=== PATIENT | male | born 1950 | race Caucasian/White ===

== ENCOUNTER 2021-03-21 13:45 | Emergency (ER) | payer MEDICARE ==
[2021-03-21] MEDS ORDERED: Morphine 4 MG/ML VIAL ONE ×2 (14:42→16:06)
[2021-03-21] MEDS ORDERED: Ondansetron PF 4 MG/2 ML Vial ONE (14:42)
[2021-03-21 16:14] LABS: #Basophils 0.1 10x3/uL (0.0-0.2); #Eosinphils 0.3 10x3/uL (0.0-0.5); #Monocytes 0.9 10x3/uL (0.0-1.1); #Neutrophils 7.2 10x3/uL (1.5-8.4); %Basophils 0.9 % (0.0-2.0); %Lymphocytes 18.3 % (18.0-47.0); %Monocytes 8.2 % (0.0-10.0); %Neutrophils 69.3 % (40.0-75.0); Hemoglobin 13.7 g/dL (13.5-17.5); Mean Corpuscular HGB CONC 31.6 g/dL (32.0-36.0); Mean Corpuscular Hemoglobin 29.8 pg (27.0-33.0); Mean Corpuscular Volume 94.1 fl (81.2-95.1); Mean Platelet Volume 9.6 fl (7.4-10.4); Platelet Count 413 10x3/uL (150-450); RBC Distribution Width 13.8 % (11.5-14.5); White Blood Cell (WBC) Count 10.4 10x3/uL (3.5-10.5)
[2021-03-21 16:19] LABS: ALT (SGPT) 6 U/L (8-55); AST (SGOT) 11 U/L (5-34); Albumin 4.3 g/dL (3.4-4.8); Alkaline Phosphatase 108 U/L (40-110); Anion Gap 13 mmol/L (10-20); BUN (Urea Nitrogen) 22 mg/dL (8.4-25.7); Bilirubin, Total 0.3 mg/dL (0.2-1.2); Calc. Creatinine Clearance 0 mL/min (70-130); Calcium 9.1 mg/dL (7.8-10.44); Carbon Dioxide 21 mmol/L (23-31); Chloride 108 mmol/L (98-107); Globulin 2.8 g/dL (2.4-3.5); Glucose 102 mg/dL (80-115); Lipase 10 U/L (8-78); Potassium 5.1 mmol/L (3.5-5.1); Protein, Total 7.1 g/dL (5.8-8.1); Sodium 137 mmol/L (136-145)
[2021-03-21] MEDS ORDERED: HYDROcodone/Acetaminophen 5/325 mg Tablet ONE (19:18)
== END 2021-03-21 19:40 | disposition home or self-care (01) ==
LOC: CSHERS 13:45
DX: R07.89 Other chest pain (principal); I10 Essential (primary) hypertension; F17.210 Nicotine dependence, cigarettes, uncomplicated
CPT/HCPCS: 36415; 71045; 71275; 80053; 83690; 83880; 84484; 85025; 85379; 93005; 94760; 96374; 96375; 96376; J2270; J2405

== ENCOUNTER 2022-01-12 10:21 | Day surgery (SDC) | payer MEDICARE ==
[2022-01-08 10:08] VITALS: BMI 28.1
[2022-01-12] MEDS ORDERED: EPINEPHrine 1 MG/ML AMP ONE (10:51)
[2022-01-12] MEDS ORDERED: Bupivacaine 0.25% HCL 30 ML VIAL ONE (10:51)
[2022-01-12] MEDS ORDERED: Famotidine/PF 20 mg/2ml Vial ONE (11:05)
[2022-01-12] MEDS ORDERED: CEFAZOLIN 2 GM VIAL ONE (12:53)
[2022-01-12] MEDS ORDERED: Phenylephrine 10 MG/ML VIAL ONE (13:05)
[2022-01-12] MEDS ORDERED: Lidocaine 1% PF 5 ML VIAL ONE (13:09)
[2022-01-12] MEDS ORDERED: Rocuronium Bromide 10 MG/ML (10ML VIAL) ONE (13:09)
[2022-01-12] MEDS ORDERED: PROPOFOL 20 ML ONE (13:09)
[2022-01-12] MEDS ORDERED: Midazolam HCl 2 mg/2 ml Vial ONE ×2 (13:09→13:11)
[2022-01-12] MEDS ORDERED: Ondansetron PF 4 MG/2 ML Vial ONE (13:09)
[2022-01-12] MEDS ORDERED: Dexamethasone 20 MG/5 ML VIAL ONE (13:10)
[2022-01-12] MEDS ORDERED: Fentanyl 100 MCG/2 ML VIAL ONE ×5 (13:10→16:05)
[2022-01-12] MEDS ORDERED: Glycopyrrolate 0.2 MG/ML 5 ML SYRINGE ONE (15:38)
[2022-01-12] MEDS ORDERED: HYDROcodone/Acetaminophen 5/325 mg Tablet ONE (16:46)
[2022-01-12] MEDS ORDERED: Ketorolac Tromethamine 30 MG/ML VIAL ONE (17:07)
== END 2022-01-12 17:40 | disposition home or self-care (01) ==
LOC: CSHSDC 10:21
PROVIDERS: ATTEND Orthopaedic Surgery
PROC: 0JH70BZ Insertion of Single Array Stimulator Generator into Back Subcutaneous Tissue and Fascia, Open Approach (ICD-10-PCS; principal; 2022-01-12)
PROC: 00HU0MZ Insertion of Neurostimulator Lead into Spinal Canal, Open Approach (ICD-10-PCS; 2022-01-12)
DX: M54.6 Pain in thoracic spine (principal); G89.4 Chronic pain syndrome; M54.16 Radiculopathy, lumbar region
CPT/HCPCS: 63655; 63685; 72072; C1778; C1820; C1889; J0171; J1100; J1885; J2250; J2370; J2405; J2704; J3010; S0020; S0028

== ENCOUNTER 2022-01-17 17:26 | Emergency (ER) | payer MEDICARE ==
[~2022-01-17 17:26] MED LIST: Iopamidol 300 61% 100 ML VIAL FS ONE
[2022-01-17 18:09] LABS: #Eosinphils 0.1 10x3/uL (0.0-0.5); #Monocytes 1.4 10x3/uL (0.0-1.1); #Neutrophils 6.7 10x3/uL (1.5-8.4); %Basophils 0.4 % (0.0-2.0); %Eosinophils 0.6 % (0.0-6.0); %Lymphocytes 13.9 % (18.0-47.0); %Monocytes 14.8 % (0.0-10.0); %Neutrophils 69.6 % (40.0-75.0); Hemoglobin 12.2 g/dL (13.5-17.5); Mean Corpuscular HGB CONC 33.7 g/dL (32.0-36.0); Mean Corpuscular Hemoglobin 31.5 pg (27.0-33.0); Mean Corpuscular Volume 93.5 fl (81.2-95.1); Mean Platelet Volume 9.6 fl (7.4-10.4); Platelet Count 342 10x3/uL (150-450); RBC Distribution Width 12.4 % (11.5-14.5); Red Blood Cell (RBC) Count 3.87 10x6/uL (4.32-5.72); White Blood Cell (WBC) Count 9.7 10x3/uL (3.5-10.5)
[2022-01-17] MEDS ORDERED: Morphine 4 MG/ML VIAL ONE (18:17)
[2022-01-17] MEDS ORDERED: Ketorolac Tromethamine 30 MG/ML VIAL ONE (18:17)
[2022-01-17 18:22] LABS: ALT (SGPT) 7 U/L (8-55); AST (SGOT) 13 U/L (5-34); Albumin 3.7 g/dL (3.4-4.8); Alkaline Phosphatase 76 U/L (40-110); Anion Gap 14 mmol/L (10-20); BUN (Urea Nitrogen) 13 mg/dL (8.4-25.7); Bilirubin, Total 0.3 mg/dL (0.2-1.2); Calc. Creatinine Clearance 0 mL/min (70-130); Calcium 8.7 mg/dL (7.8-10.44); Carbon Dioxide 24 mmol/L (23-31); Chloride 102 mmol/L (98-107); Estimated GFR 98; Globulin 2.8 g/dL (2.4-3.5); Glucose 140 mg/dL (80-115); Lipase 6 U/L (8-78); Protein, Total 6.5 g/dL (5.8-8.1); Sodium 136 mmol/L (136-145)
[2022-01-17] MEDS ORDERED: Fentanyl 100 MCG/2 ML VIAL ONE (18:54)
== END 2022-01-17 19:18 | disposition home or self-care (01) ==
LOC: CSHERS 17:26
DX: K59.00 Constipation, unspecified (principal); I10 Essential (primary) hypertension; F17.210 Nicotine dependence, cigarettes, uncomplicated
CPT/HCPCS: 74177; 80053; 83690; 85025; 96374; 96375; J1885; J2270; J3010; Q9967

== ENCOUNTER 2022-04-07 10:51 | Outpatient (CLI) | payer MEDICARE | END 2022-04-07 10:52 | disposition home or self-care (01) | LOC: CSHCP 10:51 | PROVIDERS: ATTEND Specialist | DX: R06.02 Shortness of breath (principal); J44.9 Chronic obstructive pulmonary disease, unspecified | CPT/HCPCS: 71046; 94060; 94726; 94729; 94760 ==

== ENCOUNTER 2022-05-19 09:23 | Outpatient (CLI) | payer MEDICARE | END 2022-05-19 09:24 | disposition home or self-care (01) | LOC: CSHCT 09:23 | PROVIDERS: ATTEND Orthopaedic Surgery | DX: Z96.611 Presence of right artificial shoulder joint (principal); S42.121A Displaced fracture of acromial process, right shoulder, initial encounter for closed fracture ==

== ENCOUNTER 2023-04-06 17:57 | Emergency (ER) | payer MEDICARE, OTHER ==
[2023-04-06] MEDS ORDERED: fentaNYL 50 mcg/mL 1 mL Vial ONE (18:44)
[2023-04-06] MEDS ORDERED: HYDROcodone/Acetaminophen 5/325 mg Tablet ONE ×2 (19:32→19:39)
[2023-04-06] MEDS ORDERED: Morphine 4 MG/ML VIAL ONE (21:37)
== END 2023-04-06 21:42 | disposition home or self-care (01) ==
LOC: CSHERS 17:57
DX: M25.552 Pain in left hip (principal); I10 Essential (primary) hypertension; F17.210 Nicotine dependence, cigarettes, uncomplicated
CPT/HCPCS: 72170; 73502 ×2; 73700; J3010; 96372; J2270